=== PATIENT | female | born 1965 | race Caucasian/White ===

== ENCOUNTER 2017-08-03 11:40 | Outpatient (CLI) | payer OTHER ==
[~2017-08-03 11:40] MED LIST: AMOX1TAB12 PO; ATORVASTATIN CA20 MG PO; CRESTOR10 MG PO; ENALAPRIL MALEAT5 MG PO; HUMALOG100 U/M1 SQ; IBUPROFEN800 MG PO; LANTUS100 U/ML SQ; LIPITOR20 MG PO; SINGULAIR10 MG PO; [UNRECOGNIZED DRUG - OTHER]
== END 2017-08-03 11:51 | disposition home or self-care (01) ==
LOC: LAB 11:40
DX: Z51.81 Encounter for therapeutic drug level monitoring (principal); D05.90 Unspecified type of carcinoma in situ of unspecified breast; E08.9 Diabetes mellitus due to underlying condition without complications

== ENCOUNTER 2017-08-03 11:54 | Outpatient (CLI) | payer OTHER | END 2017-08-03 14:59 | disposition home or self-care (01) | LOC: MAMO-SONO 11:54 | DX: D05.90 Unspecified type of carcinoma in situ of unspecified breast (principal) ==

== ENCOUNTER 2017-08-05 09:27 | Outpatient (CLI) | payer OTHER | END 2017-08-05 16:08 | disposition home or self-care (01) | LOC: TOM 09:27 | DX: E08.00 Diabetes mellitus due to underlying condition with hyperosmolarity without nonketotic hyperglycemic-hyperosmolar coma (NKHHC) (principal); F06.31 Mood disorder due to known physiological condition with depressive features; R42 Dizziness and giddiness; I10 Essential (primary) hypertension ==

== ENCOUNTER 2017-12-31 09:06 | Outpatient (CLI) | payer OTHER | END 2017-12-31 09:48 | disposition home or self-care (01) | LOC: MAMO-SONO 09:06 | DX: Z12.31 Encounter for screening mammogram for malignant neoplasm of breast (principal); C50.911 Malignant neoplasm of unspecified site of right female breast; E08.8 Diabetes mellitus due to underlying condition with unspecified complications; I10 Essential (primary) hypertension ==

== ENCOUNTER 2018-01-17 12:06 | Outpatient (CLI) | payer OTHER | END 2018-01-17 12:28 | disposition home or self-care (01) | LOC: SONOGRAMA 12:06 | DX: N60.11 Diffuse cystic mastopathy of right breast (principal); N60.12 Diffuse cystic mastopathy of left breast ==

== ENCOUNTER 2018-04-08 13:49 | Emergency (ER) | payer OTHER ==
[~2018-04-08] VITALS: Ht 160 cm; Wt 92.5 kg
== END 2018-04-08 18:13 | disposition home or self-care (01) ==
LOC: ER 13:49
DX: R10.12 Left upper quadrant pain (principal); M25.551 Pain in right hip; N39.0 Urinary tract infection, site not specified

== ENCOUNTER 2018-05-18 01:45 | Emergency (ER) | payer OTHER ==
[~2018-05-18] VITALS: Ht 160 cm; Wt 93.4 kg
[2018-05-18] MEDS ORDERED: COZAAR25 MG (02:12)
[2018-05-18] MEDS ORDERED: SKELAXIN800 MG PO (07:34)
[2018-05-18] MEDS ORDERED: ULTRAM50 MG PO (07:34)
[2018-05-18] MEDS ORDERED: CELEBREX200MG PO (07:34)
== END 2018-05-18 07:39 | disposition home or self-care (01) ==
LOC: ER 01:45 → CPU-OBS 02:29 → ER 02:29
DX: R07.89 Other chest pain (principal)
CPT/HCPCS: G0378; G0379; 93005

== ENCOUNTER 2018-08-08 09:10 | Outpatient (CLI) | payer OTHER ==
[~2018-08-08 09:10] MED LIST changes: +CELEBREX200MG PO; +COZAAR25 MG; +SKELAXIN800 MG PO; +ULTRAM50 MG PO
== END 2018-08-08 09:27 | disposition home or self-care (01) ==
LOC: MAMO-SONO 09:10
DX: C50.019 Malignant neoplasm of nipple and areola, unspecified female breast (principal); Z12.31 Encounter for screening mammogram for malignant neoplasm of breast

== ENCOUNTER → 2018-10-04 14:24 | Outpatient (CLI) | payer OTHER | END | disposition home or self-care (01) | LOC: LAB 14:24 | DX: N61.1 Abscess of the breast and nipple (principal) ==

== ENCOUNTER → 2018-11-07 | Outpatient (CLI) | payer OTHER | END | disposition home or self-care (01) | LOC: NUCLEAR 09:34 | DX: M81.0 Age-related osteoporosis without current pathological fracture (principal) ==

== ENCOUNTER 2018-12-02 05:00 | Day surgery (SDC) | payer OTHER | END 2018-12-02 10:45 | disposition home or self-care (01) | LOC: CIR.AMB 05:00 | DX: N61.1 Abscess of the breast and nipple (principal) ==

== ENCOUNTER 2021-05-05 13:12 | Emergency (ER) | payer OTHER ==
[~2021-05-05] VITALS: Ht 160 cm; Wt 95.3 kg
[2021-05-05] MEDS ORDERED: ATACAND32 MG (13:35)
[2021-05-05] MEDS ORDERED: CHILDREN'S ASPI81 MG (13:35)
[2021-05-05] MEDS ORDERED: TOPROL XL50 M1 (13:36)
[2021-05-05] MEDS ORDERED: FARXIGA10 MG (13:36)
[2021-05-05] MEDS ORDERED: LIPITOR20 MG (13:36)
[2021-05-05] MEDS ORDERED: NEURONTIN300 MG (13:36)
[2021-05-05] MEDS ORDERED: PLAVIX75 MG (13:36)
[2021-05-05] MEDS ORDERED: EVISTA60 MG (13:37)
[2021-05-05] MEDS ORDERED: DICLOFENAC SODI75 MG PO (18:48)
== END 2021-05-05 19:01 | disposition home or self-care (01) ==
LOC: ER 13:12
DX: S90.32XA Contusion of left foot, initial encounter (principal); R07.1 Chest pain on breathing; I10 Essential (primary) hypertension; X58.XXXA Exposure to other specified factors, initial encounter; Y92.89 Other specified places as the place of occurrence of the external cause

== ENCOUNTER 2021-09-08 09:42 | Outpatient (CLI) | payer OTHER ==
[~2021-09-08 09:42] MED LIST changes: +ATACAND32 MG; +CHILDREN'S ASPI81 MG; +DICLOFENAC SODI75 MG PO; +EVISTA60 MG; +FARXIGA10 MG; +LIPITOR20 MG; +NEURONTIN300 MG; +PLAVIX75 MG; +TOPROL XL50 M1
== END 2021-09-08 09:57 | disposition home or self-care (01) ==
LOC: RAD 09:42
PROVIDERS: ATTEND Specialist
DX: M54.9 Dorsalgia, unspecified (principal); R10.9 Unspecified abdominal pain

== ENCOUNTER 2022-02-05 14:54 | Inpatient (IN) | payer OTHER ==
[~2022-02-05] VITALS: Ht 160 cm; Wt 99.8 kg
== END 2022-02-12 13:00 | disposition home or self-care (01) | DRG 557 ==
LOC: ER 14:54 → MEDJ 02-06 13:26 → ICU 02-11 04:33
PROVIDERS: ADMIT Internal Medicine; ATTEND Internal Medicine
PROC: BW28ZZZ Computerized Tomography (CT Scan) of Head (ICD-10-PCS; principal; 2022-02-05)
PROC: BW21Y0Z Computerized Tomography (CT Scan) of Abdomen and Pelvis using Other Contrast, Unenhanced and Enhanced (ICD-10-PCS; 2022-02-07)
PROC: 4A12X4Z Monitoring of Cardiac Electrical Activity, External Approach (ICD-10-PCS; 2022-02-07)
PROC: B246YZZ Ultrasonography of Right and Left Heart using Other Contrast (ICD-10-PCS; 2022-02-09)
PROC: 02HV33Z Insertion of Infusion Device into Superior Vena Cava, Percutaneous Approach (ICD-10-PCS; 2022-02-09)
DX: M62.82 Rhabdomyolysis (principal); U07.1 COVID-19; N39.0 Urinary tract infection, site not specified; E11.22 Type 2 diabetes mellitus with diabetic chronic kidney disease; I12.9 Hypertensive chronic kidney disease with stage 1 through stage 4 chronic kidney disease, or unspecified chronic kidney disease; N18.9 Chronic kidney disease, unspecified; I25.10 Atherosclerotic heart disease of native coronary artery without angina pectoris; R79.82 Elevated C-reactive protein (CRP); D69.6 Thrombocytopenia, unspecified; Z79.4 Long term (current) use of insulin

== ENCOUNTER → 2024-04-19 07:07 | Outpatient (CLI) | payer OTHER ==
[~2024-04-19 07:07] MED LIST changes: +BACTRIM DS TAB1 EACH PO
== END | disposition home or self-care (01) ==
LOC: NUCLEAR 07:00
PROVIDERS: ATTEND Internal Medicine Gastroenterology
DX: K31.84 Gastroparesis (principal)

== ENCOUNTER 2024-09-27 07:03 | Outpatient (CLI) | payer OTHER | END 2024-09-27 07:24 | disposition home or self-care (01) | LOC: RAD 07:03 | PROVIDERS: ATTEND General Practice | DX: M51.16 Intervertebral disc disorders with radiculopathy, lumbar region (principal); R10.9 Unspecified abdominal pain; S22.42XA Multiple fractures of ribs, left side, initial encounter for closed fracture; X58.XXXA Exposure to other specified factors, initial encounter; Y93.9 Activity, unspecified; Y92.9 Unspecified place or not applicable; Y99.9 Unspecified external cause status; Z13.6 Encounter for screening for cardiovascular disorders | CPT/HCPCS: 72148 ==